=== PATIENT | female | born 1990 | race Caucasian/White ===

== ENCOUNTER 2025-06-28 15:04 | Emergency (ER) | payer BC, SELFPAY ==
[2025-06-28 15:08] VITALS: BP 156/89; PULSE 100; RESP 16; TEMP 36.4; O2SAT 99
--- NOTE | 2025-06-28 15:28 | W.ED.GENAD ---
Discharge Plan Disposition Patient Disposition: Home Condition: Stable Discharge Details Clinical Impression: Forehead abrasion Primary Care Provider: Unknown,Unknown ED Provider: Bartolo Welsh Discharge Instructions Instructions: Abrasions ED, Tdap (Tetanus, Diphtheria, Pertussis) Vaccine CDC Vaccine Information Statement (VIS) Additional Instructions: You were seen in the emergency department for your minor forehead abrasion as well as nasal bridge abrasion from scoped by a rifle while shooting. You have no signs of concussion and per all of our evidence-based algorithms CT head is not warranted at this time, you have friends and family around the can monitor you should you have any neurologic changes this evening please return for CT of your head. Otherwise please take Tylenol and ibuprofen, keep the wounds clean and covered with bandages and stay and return for any emergent concerns. Stand Alone Forms: Portal Information Discharge Data Discharge Date/Time-TO BE ENTERED AT DEPARTURE: 06/28/25 15:40 HPI General Date/Time Provider Initiated Documentation: 06/28/25 15:11. HPI Narrative: 34 year-old female presents to ED today by POV/ambulating with her brother with a chief complaint of laceration/abrasion to nose and R forehead from scope of rifle while they were target shooting with friends with onset just prior to arrival. Quality described as minor bleeding, some headache, pain at bridge of nose, no radiation to LOC, dizziness, visual changes, amnesia, nausea/vomiting, epistaxis. Severity is described as mild. Palliating factors include nothing specific. Provoking factors include nothing specific. Events leading up to the incident/Associated Symptoms: Patient unsure of last Tdap. Patient not anticoagulated. Related Data Allergies Allergy/AdvReac Type Severity Reaction Status Date / Time No Known Allergies Allergy Unverified 06/28/25 15:10 General Stated Complaint: HeadInjury BARBARA: 3 Review of Systems All systems reviewed & are unremarkable except as noted in HPI and below Exam Narrative Exam Narrative: GENERAL APPEARANCE: Well-nourished, non-toxic, awake and alert, atraumatic, no acute distress. SKIN: Warm, pink, dry, minor 3cm curvilinear abrasion above the right eyebrow as well as a tiny pinpoint abrasion to the bridge of the nose from the rifles scope, no active bleeding, no nasal bone tenderness or crepitus HEAD: Normocephalic, atraumatic, normal hair distribution for gender/age. EYES: Normal conjunctiva, no exudates on lids/lashes. ENT: Nares patent, no circumoral cyanosis, no facial swelling NECK: Supple, trachea midline, painless cervical ROM. LUNGS/CHEST: Non-labored respirations, normal A/P diameter, symmetrical expansion, no chest wall deformity HEART (CV/PV): No peripheral edema, no JVD. ABDOMEN: Soft, non-distended, no guarding. MSK: Normal ROM, no swelling/deformity to bilateral UEs or LEs, moving all extremities without weakness, no cyanosis, spine midline without tenderness, normal curvature. NEURO: Mental Status AAOx4 - alert to person, place, time, events No facial droop, no forehead involvement. Motor: No focal weakness Sensory: sensation intact to light touch globally. Gait normal: patient ambulated without ataxia into ED room. PSYCH: euthymic, cooperative, pleasant, appropriate speech Course Vital Signs Vital signs: Vital Signs Temperature 36.4 C L 06/28/25 15:08 Pulse 100 H 06/28/25 15:08 Respiratory Rate 16 06/28/25 15:08 Blood Pressure 156/89 H 06/28/25 15:08 Pulse Oximetry 99 06/28/25 15:08 Temperature 36.4 C L 06/28/25 15:08 Temperature Source Oral 06/28/25 15:08 Pulse 100 H 06/28/25 15:08 Respiratory Rate 16 06/28/25 15:08 Respiratory Effort Normal 06/28/25 15:15 Respiratory Depth Normal 06/28/25 15:15 Respiratory Pattern Normal 06/28/25 15:15 Blood Pressure 156/89 H 06/28/25 15:08 Pulse Oximetry 99 06/28/25 15:08 Oxygen Delivery Method Room Air 06/28/25 15:08 Oxygen Flow Rate 0 06/28/25 15:08 Medical Decision Making This dictation utilizes [id number] dictation software and may contain unedited grammatical errors. 34 year-old female presents to ED today by POV/ambulating with her brother with a chief complaint of laceration/abrasion to nose and R forehead from scope of rifle while they were target shooting with friends with onset just prior to arrival. Quality described as minor bleeding, some headache, pain at bridge of nose, no radiation to LOC, dizziness, visual changes, amnesia, nausea/vomiting, epistaxis. Severity is described as mild. Palliating factors include nothing specific. Provoking factors include nothing specific. Events leading up to the incident/Associated Symptoms: Patient unsure of last Tdap. Patients' medical history: Negative, otherwise healthy. Family and social history: Patient is visiting the area from [place]. Pertinent exam findings / vital signs include minor 3cm curvilinear abrasion above the right eyebrow as well as a tiny pinpoint abrasion to the bridge of the nose from the [employer] scope, no active bleeding, no nasal bone tenderness or crepitus, vision grossly intact, neuro intact. Differential / pathologies of concern include abrasions, nasal fracture, minor forehead hematoma. Diagnostic studies of: - None, does not meet [facility] head CT criteria, discussed possibility of isolated nasal fracture but without significant exquisite tenderness and diagnosis of this possible condition would not change treatment patient opted against imaging. Interventions of: - Simple wound cleaning, Tdap updated. ED Course/Assessment/Plan: 34-year-old otherwise healthy female was scoped by [employer] while target shooting with friends, she has minor curvilinear abrasion above her right eyebrow as well as a pinpoint abrasion to the nasal bridge without crepitus to this area, CT head criteria negative, CT facial bones would not change any treatment recommendations and we did provide some wound cleaning for the patient and updated her tetanus in the setting of this occurring outdoors near soil, counseled on strict return criteria for any signs of infection. Findings not consistent with facial fracture, globe involvement, repairable laceration. Disposition of Forehead Abrasion. Patient verbalized understanding of the plan and return to ED criteria and engaged in shared decision making. [facility] All Active Problems (Updated 06/28/25 @ 15:30 by BELEN Bae) Forehead abrasion (Acute) Social History Smoking risk assessment performed?: No PAWSS Have you Been Recently Intoxicated or Drunk Within the Last 30 days?: No Have you Ever Experienced Previous Episodes of Alcohol Withdrawal?: No Have you ever Experienced Withdrawal Seizures?: No Have you ever Experienced Delirium Tremens(DT)s?: No Have you ever undergone Alcohol Rehabilitation Treatment (i.e, inpt ot outpatient treatment programs)?: No Have you ever Experienced Blackouts?: No Have you ever Combined Alcohol with other Downers within the last 90 days?: No Have you ever Combined Alcohol with any other Substance of Abuse during the last 90 days?: No Positive Blood Alcohol level on Presentation? [PCS.BAL]: No Evidence of Increased Autonomic Activity (i.e. HR>120, tremor, sweating, agitation, nausea)?: No Result: 0
[2025-06-28] MEDS: Diph,Pertuss(Acell),Tet Vac/Pf 0.5 ML SYR IM (15:36)
== END 2025-06-28 15:40 | disposition home or self-care (01) ==
PROVIDERS: Emergency Provider Physician Assistant
DX: S00.81XA Abrasion of other part of head, initial encounter (principal); W22.8XXA Striking against or struck by other objects, initial encounter
CPT/HCPCS: 99283 ×2; 90471; 90715